=== PATIENT | female | born 1990 | race Caucasian/White ===

== ENCOUNTER 2017-12-31 08:02 | Emergency (ER) | payer BC, OTHER ==
[2017-12-31] MEDS ORDERED: Promethazine 25 MG/ML SDV IM ONE (08:11)
[2017-12-31] MEDS ORDERED: Ketorolac 30 MG/ML SDV IVPUSH ONE (08:11)
[2017-12-31] MEDS ORDERED: Sodium Chloride 0.9% 1,000 ML IV ONE ×2 (08:11→08:48)
--- NOTE | 2017-12-31 08:21 | EDM.PDOC ---
ED HPI GENERAL MEDICAL PROBLEM - General Stated Complaint: HEAD PAIN Time Seen by Provider: 12/31/17 08:10 Source of Information: Reports: Patient, Family History Limitations: Reports: No Limitations - History of Present Illness INITIAL COMMENTS - FREE TEXT/NARRATIVE: This 27 yo female patient reports to the ED with a headache. The patient reports that she does have a history of migraine headaches, but does not take any medications for her headaches. The patient reports that she got back from [place] (27 hour flight). The patient reports that her plane got in at about 2200 last night in [place] and the family drove back to [place]. The patient does not know exactly what time her headache started during the night, but it has gotten worse. The patient currently rates her pain at a 10/10. The patient has not taken any oral medications for temporary symptom relief. The patient reports no possibility of being . Onset: Today Duration: Constant, Getting Worse Location: Reports: Head Quality: Reports: Ache, Sharp, Throbbing Severity: Severe Improves with: Reports: None Worsens with: Reports: None Context: Reports: Other Associated Symptoms: Reports: Nausea/Vomiting Headache Pain Score (Numeric/FACES): 7 - Related Data Allergies Allergy/AdvReac Type Severity Reaction Status Date / Time amoxicillin Allergy Intermediate Rash Verified 12/31/17 08:46 Home Meds: Home Meds Norgestimate-Ethinyl Estradiol [Ortho Tri-Cyclen Lo Tablet] 1 tab PO DAILY 12/31 [History] ED ROS GENERAL - Review of Systems Review Of Systems: ROS reveals no pertinent complaints other than HPI. - Physical Exam Exam: See Below Exam Limited By: No Limitations General Appearance: Alert, WD/WN, Severe Distress Eye Exam: Bilateral Eye: EOMI, Normal Inspection, PERRL Ears: Normal External Exam, Normal Canal, Hearing Grossly Normal, Normal TMs Nose: Normal Inspection, Normal Mucosa, No Blood Throat/Mouth: Normal Inspection, Normal Lips, Normal Teeth, Normal Gums, Normal Oropharynx, Normal Voice, No Airway Compromise Head Exam: Atraumatic, Normocephalic Neck: Normal Inspection, Supple, Non-Tender, Full Range of Motion Respiratory/Chest: No Respiratory Distress, Lungs Clear, Normal Breath Sounds, No Accessory Muscle Use, Chest Non-Tender Cardiovascular: Normal Peripheral Pulses, Regular Rate, Rhythm, No Edema, No Gallop, No JVD, No Murmur, No Rub GI/Abdominal: Normal Bowel Sounds, Soft, Non-Tender, No Organomegaly, No Distention, No Abnormal Bruit, No Mass (Female) Exam: Deferred Rectal (Female) Exam: Deferred Neuro Exam (Abbreviated): Alert, Oriented, CN II-XII Intact, Normal Cognition, Normal Gait, No Motor/Sensory Deficits Extremities: Normal Inspection, Normal Range of Motion Skin Exam: Warm, Dry, Intact, Normal Color, No Rash Course - Vital Signs Last Recorded V/S: Last Vital Signs Temp 36.5 C 12/31/17 08:04 Pulse 91 12/31/17 08:04 Resp 18 12/31/17 08:04 BP 122/76 12/31/17 08:04 Pulse Ox 100 12/31/17 08:04 - Orders/Labs/Meds Orders: Active Orders 24 hr Category Date Time Status Sodium Chloride 0.9% [Normal Saline] 1,000 ml Med 12/31/17 08:48 Ordered IV .BOLUS Medication Orders Sodium Chloride (Normal Saline) 1,000 mls @ 999 mls/hr IV .BOLUS ONE Stop: 12/31/17 09:48 Last Admin: 12/31/17 08:50 Dose: 999 mls/hr Meds: Medications Generic Name Dose Route Start Last Admin Trade Name Freq PRN Reason Stop Dose Admin Sodium Chloride 1,000 mls @ 999 mls/hr 12/31/17 08:48 12/31/17 08:50 Normal Saline IV 12/31/17 09:48 999 mls/hr .BOLUS ONE Administration Discontinued Medications Generic Name Dose Route Start Last Admin Trade Name Freq PRN Reason Stop Dose Admin Sodium Chloride 1,000 mls @ 999 mls/hr 12/31/17 08:11 12/31/17 08:20 Normal Saline IV 12/31/17 09:11 999 mls/hr .BOLUS ONE Administration Ketorolac Tromethamine 30 mg 12/31/17 08:11 12/31/17 08:22 Toradol IVPUSH 12/31/17 08:12 30 mg ONETIME ONE Administration Promethazine HCl 25 mg 12/31/17 08:11 12/31/17 08:25 Phenergan IM 12/31/17 08:12 25 mg ONETIME ONE Administration - Re-Assessments/Exams Free Text/Narrative Re-Assessment/Exam: 12/31/17 09:38 Discussed the possible additional treatments with the patient and side effects of those treatments. The patient reports that she is does not want any additional medications. Departure - Departure Time of Disposition: 09:39 Disposition: Home, Self-Care 01 Clinical Impression: Migraine - Discharge Information *PRESCRIPTION DRUG MONITORING PROGRAM REVIEWED*: Not Applicable *COPY OF PRESCRIPTION DRUG MONITORING REPORT IN PATIENT FANNIE: Not Applicable Instructions: Migraine Headache, [id number] Forms: ED Department Discharge Care Plan Goals: The patient was advised of the examination results during the visit. The patient was given 2 liters of IV fluid, IV Toradol and an injection of Phenergan while in the ED. The patient was encouraged to increase her oral fluid intake. The patient may take Tylenol for continued management of symptoms. If the patient has any additional symptoms or concerns, the patient should follow-up with her primary care provider or return to the emergency department. - My Orders Last 24 Hours: My Active Orders 12/31/17 08:48 Sodium Chloride 0.9% [Normal Saline] 1,000 ml IV .BOLUS - Assessment/Plan Last 24 Hours: My Active Orders 12/31/17 08:48 Sodium Chloride 0.9% [Normal Saline] 1,000 ml IV .BOLUS
== END 2017-12-31 09:47 | disposition home or self-care (01) ==
LOC: DL.ED 08:02
DX: G43.909 Migraine, unspecified, not intractable, without status migrainosus (principal); Z88.1 Allergy status to other antibiotic agents
CPT/HCPCS: 96361; 96372; 96374; 99283; J1885; J2550; J7030

== ENCOUNTER → 2018-11-04 | Outpatient (CLI) | payer BC, OTHER | LOC: DL.MRI 14:05 | PROVIDERS: ATTEND Chiropractor | DX: M99.05 Segmental and somatic dysfunction of pelvic region (principal); M25.551 Pain in right hip | CPT/HCPCS: 73721-RT ==